=== PATIENT | female | born 1965 | race Caucasian/White ===

== ENCOUNTER 2016-09-08 18:57 | Emergency (ER) | payer MEDICAID ==
[~2016-09-08] VITALS: Ht 162.6 cm; Wt 81.8 kg
[~2016-09-08 18:57] MED LIST: CLON.2 PO; CLON1 PO; LAMO100 PO; LEVO100T4 PO; ONDA1TAB16 PO; TYLE3 PO
[2016-09-08 19:19] VITALS: BP 164/77; PULSE 85; RESP 18; TEMP 98.6; O2SAT 99
[2016-09-08] MEDS ORDERED: SODIUM CHLOR 0.9% 1000 ML INJ 1,000 ML IV SCH (19:37)
--- NOTE | 2016-09-08 19:42 | PD ---
HPI Chief Complaint: Flank/Kidney Pain Time Seen by Provider: 19:39 Travel History International Travel<30 days: No Contact w/Intl Traveler<30days: No Traveled to known affect area: No History of Present Illness HPI 51-year-old female presents to the emergency department for evaluation of right flank pain that radiates to the right abdomen that started last night, but has worsened throughout the day. Patient states she initially thought it was a muscle strain, but the pain has been worsening. She denies any injury. No fevers or chills. She states the pain is worse when she takes a deep breath. Patient states that she had pain like this before when she had her gallbladder removed. She denies any history of nephrolithiasis. She denies any urinary symptoms. She states she is nauseated, but has not vomited. No diarrhea or constipation. No pelvic pain. She reports history of tubal ligation. PFSH Past Medical History Cancer: No Cardiovascular Problems: Yes ( ) Diabetes: No Diminished Hearing: No Endocrine: No Fibromyalgia: Yes Genitourinary: No Hepatitis: No Hiatal Hernia: No Hypertension: Yes Immune Disorder: Yes (fibromyalgia) Musculoskeletal: Yes (l hip pain lower back back pain) Neurologic: Yes (fibromyalgia) Psychiatric: No Reproductive: No Respiratory: No Thyroid Disease: Yes ?: Not Ovarian Cysts: Yes Tubal Ligation: Yes Past Surgical History Abdominal Surgery: Yes (laparoscopy) AICD: No Cardiac Surgery: No Cholecystectomy: Yes Ear Surgery: No Endocrine Surgery: No Eye Surgery: No Gynecologic Surgery: Yes ( ) Joint Replacement: Yes (hip right side) Oral Surgery: No Pacemaker: No Thoracic Surgery: No Other Surgery: Yes Social History Alcohol Use: No Tobacco Use: No 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) Allergies-Medications (Allergen,Severity, Reaction): Coded Allergies: Bactrim (Verified Allergy, Severe, SWELLING, 10/31/15) Doxycycline (Verified Allergy, Severe, SWELLING, 10/31/15) Erythromycin (Verified Allergy, Severe, SWELLING, 10/31/15) Toradol (Verified Allergy, Severe, SWELLING, 10/31/15) Trilafon (Verified Allergy, Severe, SWELLING, 10/31/15) Reported Meds & Prescriptions Reported Meds & Active Scripts Active Lortab (Hydrocodone-Acetaminophen) 5-325 Mg Tab 1 Tab PO Q6H PRN Reported Omeprazole 40 Mg Cap 40 Mg PO DAILY Klonopin (Clonazepam) 2 Mg Tab 2 Mg PO HS Ibuprofen 800 Mg Tab 800 Mg PO TID Zanaflex (Tizanidine HCl) 4 Mg Cap 4 Mg PO TID Hydroxyzine HCl 25 Mg Tab 25 Mg PO TID Remeron (Mirtazapine) 15 Mg Tab 15 Mg PO HS Catapres (Clonidine) 0.2 Mg Tab 0.2 Mg PO BID Ondansetron (Ondansetron HCl) 8 Mg Tab 6 Mg PO Q6HR Lamotrigine 100 Mg Tab 100 Mg PO HS Levothyroxine (Levothyroxine Sodium) 100 Mcg Tab 100 Mcg PO DAILY Review of Systems Except as stated in HPI: all other systems reviewed are Neg Physical Exam Narrative GENERAL: Well-nourished, well-developed female patient, afebrile. SKIN: Focused skin assessment warm/dry. HEAD: Normocephalic. Atraumatic. EYES: No scleral icterus. No injection or drainage. NECK: Supple, trachea midline. No JVD or lymphadenopathy. CARDIOVASCULAR: Regular rate and rhythm without murmurs, gallops, or rubs. RESPIRATORY: Breath sounds equal bilaterally. No accessory muscle use. Lungs sounds are clear to auscultation. GASTROINTESTINAL: Abdomen soft and nondistended. Patient has tenderness over right upper quadrant. MUSCULOSKELETAL: No cyanosis, or edema. BACK: Nontender without obvious deformity. Right CVA tenderness. Data Data Last Documented VS Vital Signs Date Time Temp Pulse Resp B/P Pulse Ox O2 Delivery O2 Flow Rate FiO2 09/08/16 19:19 98.6 85 18 164/77 99 Orders Morphine Inj (Morphine Inj) (09/08/16 19:45) Complete Blood Count With Diff (09/08/16 19:37) Comprehensive Metabolic Panel (09/08/16 19:37) Lipase (09/08/16 19:37) Urinalysis - C+S If Indicated (09/08/16 19:37) Ct Abd/Pel W/O Iv Contrast (09/08/16 19:37) Iv Access Insert/Monitor (09/08/16 19:37) Ecg Monitoring (09/08/16 19:37) Oximetry (09/08/16 19:37) Ondansetron Inj (Zofran Inj) (09/08/16 19:45) Sodium Chlor 0.9% 1000 Ml Inj (Ns 1000 M (09/08/16 19:37) Sodium Chloride 0.9% Flush (Ns Flush) (09/08/16 19:45) Electrocardiogram (09/08/16 19:37) Morphine Inj (Morphine Inj) (09/08/16 22:00) Labs Laboratory Tests Test 09/08/16 09/08/16 20:05 21:25 Urine Color LIGHT-YELLOW Urine Turbidity CLEAR Urine pH 6.5 Urine Specific [place] 1.004 Urine Protein NEG mg/dL Urine Glucose (UA) NEG mg/dL Urine Ketones NEG mg/dL Urine Occult Blood NEG Urine Nitrite NEG Urine Bilirubin NEG Urine Urobilinogen LESS THAN 2.0 MG/DL Urine Leukocyte Esterase NEG Urine RBC LESS THAN 1 /hpf Urine WBC LESS THAN 1 /hpf Urine Bacteria RARE /hpf Microscopic Urinalysis Comment CULT NOT INDICATED Sodium Level 143 MEQ/L Potassium Level 4.6 MEQ/L Chloride Level 111 MEQ/L Carbon Dioxide Level 22.0 MEQ/L Anion Gap 10 MEQ/L Blood Urea Nitrogen 9 MG/DL Creatinine 0.86 MG/DL Estimat Glomerular Filtration 70 ML/MIN Rate Random Glucose 124 MG/DL Calcium Level 9.0 MG/DL Total Bilirubin 0.3 MG/DL Aspartate Amino Transf 109 U/L (AST/SGOT) Alanine Aminotransferase 163 U/L (ALT/SGPT) Alkaline Phosphatase 123 U/L Total Protein 7.8 GM/DL Albumin 3.7 GM/DL Lipase 262 U/L White Blood Count 7.3 TH/MM3 Red Blood Count 4.42 MIL/MM3 Hemoglobin 13.0 GM/DL Hematocrit 38.2 % Mean Corpuscular Volume 86.5 FL Mean Corpuscular Hemoglobin 29.5 PG Mean Corpuscular Hemoglobin 34.1 % Concent Red Cell Distribution Width 14.5 % Platelet Count 158 TH/MM3 Mean Platelet Volume 9.7 FL Neutrophils (%) (Auto) 60.7 % Lymphocytes (%) (Auto) 32.5 % Monocytes (%) (Auto) 5.1 % Eosinophils (%) (Auto) 0.9 % Basophils (%) (Auto) 0.8 % Neutrophils # (Auto) 4.5 TH/MM3 Lymphocytes # (Auto) 2.4 TH/MM3 Monocytes # (Auto) 0.4 TH/MM3 Eosinophils # (Auto) 0.1 TH/MM3 Basophils # (Auto) 0.1 TH/MM3 CBC Comment DIFF FINAL Differential Comment MDM Medical Decision Making Medical Screen Exam Complete: Yes Emergency Medical Condition: Yes Medical Record Reviewed: Yes Interpretation(s) Last Impressions Abdomen/Pelvis CT 09/08/161936 Signed Impressions: Service Date/Time: Thursday, September 08, 2016 20:08 - CONCLUSION: Negative renal colic CT. No evidence of renal/ureteral stones or hydronephrosis. Martin Jimenez MD Differential Diagnosis Nephrolithiasis versus pyelonephritis versus pancreatitis Narrative Course 51-year-old female presents to the emergency department for evaluation of right flank pain and right abdomen pain that started last night. EKG, CBC, CMP, lipase, UA are ordered and pending. CT abdomen/pelvis is ordered and pending. Patient is given normal saline 1 L IV bolus, Zofran 4 mg IV, morphine 4 mg IV. EKG shows SR, HR 75, no acute ST changes. CBC is unremarkable. CMP shows elevated AST of 109, ALT 163, alkaline phosphatase of 123. Lipase is 262. UA is negative. CT abdomen/pelvis is negative. Patient is given second dose morphine 4 mg IV for pain. She is instructed to follow with her primary care physician for further evaluation. She is return for any acute worsening of symptoms. Patient verbalizes agreement and understanding. My attending physician, Dr. Nixon, is aware of all results and agrees with plan and disposition. The patient was discharged in stable condition with instructions, including return instructions and follow up instructions. Diagnosis Primary Impression: Abdominal pain Qualified Code: R10.11 - Right upper quadrant abdominal pain Referrals: Primary Care Physician call for appointment Patient Instructions: Abdominal Pain (ED), General Instructions Additional Instructions: Take Lortab as directed as needed with food for pain. Follow-up with your primary care physician. Return to the emergency department for any acute worsening of symptoms. Med/Other Pt SpecificInfo: Prescription(s) given Scripts Hydrocodone-Acetaminophen (Lortab)5-325 Mg Tab1 Tab PO Q6H PRN (PAIN) #12 TAB Ref 0 Prov:Hernandez Nixon MD 09/08/16 Disposition: 01 DISCHARGE HOME Condition: Stable DouglasNatalia Sep 08, 2016 19:41
[2016-09-08] MEDS ORDERED: ONDANSETRON HCL 4 MG/2 ML VIAL IVP ONE (19:45)
[2016-09-08] MEDS ORDERED: MORPHINE SULFATE 4 MG/ML INJ IV PUSH ONE ×2 (19:45→22:00)
[2016-09-08] MEDS: SODIUM CHLORIDE 0.9% FLUSH 10 ML FLUSH IV FLUSH PRN ×2 (19:56→21:56)
[2016-09-08] MEDS ORDERED: LEVO100T5 PO (20:01)
[2016-09-08] MEDS ORDERED: REME15TA PO (20:01)
[2016-09-08] MEDS ORDERED: LAMO100T PO (20:01)
[2016-09-08] MEDS ORDERED: KLON2TAB PO (20:01)
[2016-09-08] MEDS ORDERED: ZANA4CAP PO (20:01)
[2016-09-08] MEDS ORDERED: IBUP800T23 PO (20:01)
[2016-09-08] MEDS ORDERED: HYDR-3133 PO (20:01)
[2016-09-08] MEDS ORDERED: CLON.2 PO (20:01)
[2016-09-08] MEDS ORDERED: ONDA1TAB17 PO (20:01)
[2016-09-08] MEDS ORDERED: OMEP40CA2 PO (20:01)
[2016-09-08 20:35] LABS: BACTERIA, URINE RARE /hpf; BLOOD, URINE NEG (NEG); COMMENT (UR) CULT NOT INDICATED; CULTURE IF INDICATED CULT NOT INDICATED; GLUCOSE,URINE NEG (NEG); KETONE, URINE NEG (NEG); NITRITE,URINE NEG (NEG); PH, URINE 6.5 (5.0-8.5); URINE COLOR LIGHT-YELLOW (YELLW/STRAW)
[2016-09-08 20:38] LABS: ANION GAP 10 MEQ/L (5-15); AST (GOT) 109 U/L (15-37); BLOOD UREA NITROGEN 9 MG/DL (7-18); CHLORIDE 111 MEQ/L (98-107); GLOMERULAR FILTRATION RATE 70 ML/MIN (>89); SODIUM (NA) 143 MEQ/L (136-145)
[2016-09-08 20:41] LABS: ALKALINE PHOSPHATASE 123 U/L (45-117); ALT (GPT) 163 U/L (10-53); TOTAL BILIRUBIN ADULT 0.3 MG/DL (0.2-1.0)
[2016-09-08 20:45] LABS: POTASSIUM 4.6 MEQ/L (3.5-5.1)
--- NOTE | 2016-09-08 20:45 | RADRPT ---
EXAM DATE/TIME: 09/08/2016 20:08 [facility] COMPARISON: CT ABDOMEN & PELVIS W/O CONTRAST, October 31, 2015, 7:26. INDICATIONS : Right flank pain today. ORAL CONTRAST: No oral contrast ingested. RADIATION DOSE: 14.94 CTDIvol (mGy) MEDICAL HISTORY : Hypertension. fibromyalgia SURGICAL HISTORY : Cholecystectomy. Tubal ligation. ENCOUNTER: Initial ACUITY: 1 day PAIN SCALE: 7/10 LOCATION: Right flank TECHNIQUE: Volumetric scanning of the abdomen and pelvis was performed. Using automated exposure control and ad justment of the mA and/or kV according to patient size, radiation dose was kept as low as reasonably achievable to obtain optimal diagnostic quality images. DICOM format image data is available electro nically for review and comparison. FINDINGS: LOWER LUNGS: The visualized lower lungs are clear. LIVER: Homogeneous density without lesion for noncontrast technique. There is no dilation of the biliary tr ee. Cholecystectomy. SPLEEN: Normal size without lesion. PANCREAS: Within normal limits. KIDNEYS: No evidence of hydronephrosis or hydroureter. No calcified stones in the collecting system of either kidney. No calcified stones along the course of the ureter. There is a focal calcification measuri ng 2 mm seen on image #146 which was present on prior examination in 2016, it is unrelated to the ure ter, and probably represents a phlebolith. ADRENAL GLANDS: Within normal limits. VASCULAR: There is no aortic aneurysm. BOWEL/MESENTERY: The stomach, small bowel, and colon demonstrate no acute abnormality. There is no free intraperitone al air or fluid. ABDOMINAL WALL: Within normal limits. RETROPERITONEUM: There is no lymphadenopathy. BLADDER: Uterus is anteverted. No evidence of free fluid. REPRODUCTIVE: Within normal limits. INGUINAL: There is no lymphadenopathy or hernia. MUSCULOSKELETAL: Stable bone island right L3 vertebral body and mild hypertrophic degenerative changes and posterior e lements lower lumbar spine. Stable bone plug left sacral ala. CONCLUSION: Negative renal colic CT. No evidence of renal/ureteral stones or hydronephrosis. Martin Jimenez MD on September 08, 2016 at 20:36 Board Certified Radiologist. This report was verified electronically.
[2016-09-08 21:39] LABS: AUTOMATED NEUTROPHIL # 4.5 TH/MM3 (1.8-7.7); BASOPHIL # 0.1 TH/MM3 (0-0.2); BASOPHIL % 0.8 % (0.0-2.0); EOSINOPHIL # 0.1 TH/MM3 (0-0.4); EOSINOPHIL % 0.9 % (0.0-4.0); HEMATOCRIT 38.2 % (35.0-46.0); HEMO FLAGS DIFF FINAL; LYMPH % 32.5 % (9.0-44.0); LYMPHOCYTE # 2.4 TH/MM3 (1.0-4.8); MEAN CELL VOLUME 86.5 FL (80.0-100.0); MEAN CORPUSCULAR HEMOGLOBIN 29.5 PG (27.0-34.0); MEAN CORPUSCULAR HGB CONC 34.1 % (32.0-36.0); MONO % 5.1 % (0.0-8.0); NEUT % 60.7 % (16.0-70.0); PLATELET COUNT 158 TH/MM3 (150-450); RED BLOOD COUNT 4.42 MIL/MM3 (4.00-5.30); RED CELL DISTRIBUTION WIDTH 14.5 % (11.6-17.2); WHITE BLOOD COUNT 7.3 TH/MM3 (4.0-11.0)
[2016-09-08] MEDS ORDERED: HYDR-3533 PO (21:47)
--- NOTE | 2016-09-09 13:18 | EKG ---
Date Performed: 09/08/2016 Time Performed: 19:54:36 PTAGE: 51 years EKG: Sinus rhythm NORMAL ECG PREVIOUS TRACING : 06/16/2015 12.28 Compared to prior tracing no significant change DOCTOR: Samy Evans Interpretating Date/Time 09/09/2016 13:14:38
== END 2016-09-08 22:16 | disposition home or self-care (01) ==
LOC: NEPE 18:57
DX: R10.11 Right upper quadrant pain (principal); I10 Essential (primary) hypertension; F19.21 Other psychoactive substance dependence, in remission
CPT/HCPCS: 74176; 80053; 81001; 83690; 85025; 93005; 96361; 96374; 96375; 96376; 99285; J2270; J2405; J7030

== ENCOUNTER 2016-09-11 10:14 | Emergency (ER) | payer MEDICAID ==
[~2016-09-11] VITALS: Ht 162.6 cm; Wt 180.0 kg
[~2016-09-11 10:14] MED LIST changes: -CLON1 PO; +HYDR-3133 PO; +HYDR-3533 PO; +IBUP800T23 PO; +KLON2TAB PO; -LAMO100 PO; +LAMO100T PO; -LEVO100T4 PO; +LEVO100T5 PO; +OMEP40CA2 PO; -ONDA1TAB16 PO; +ONDA1TAB17 PO; +REME15TA PO; -TYLE3 PO; +ZANA4CAP PO
[2016-09-11 10:39] VITALS: BP 160/71; PULSE 62; RESP 16; TEMP 98.3; O2SAT 96
[2016-09-11 10:46] VITALS: BP 162/98; PULSE 84; RESP 18; O2SAT 98
[2016-09-11] MEDS ORDERED: MORPHINE SULFATE 4 MG/ML INJ IV PUSH ONE ×2 (11:00→13:30)
[2016-09-11] MEDS ORDERED: SODIUM CHLORIDE 0.9% FLUSH 10 ML FLUSH IV FLUSH PRN (11:00)
[2016-09-11] MEDS ORDERED: ONDANSETRON HCL 4 MG/2 ML VIAL IVP ONE (11:00)
--- NOTE | 2016-09-11 11:04 | PD ---
HPI Chief Complaint: Abdominal Pain Time Seen by Provider: 10:43 Travel History International Travel<30 days: No Contact w/Intl Traveler<30days: No Traveled to known affect area: No History of Present Illness HPI 51yo F with PMH of fibromyalgia presents to the ED with c/o abdominal pain today. Pt was just seen at [facility] on 09/08/16 with similar abdominal pain and had negative CT a/p. Pt also with nausea. Pain is right sided, constant and feels like cramping. Pt is crying, laying on right side which makes it better. No urinary complaints. PFSH Past Medical History Cancer: No Cardiovascular Problems: Yes ( ) Diabetes: No Diminished Hearing: No Endocrine: No Fibromyalgia: Yes Gastrointestinal Disorders: No Genitourinary: No Hepatitis: No Hiatal Hernia: No Hypertension: Yes Immune Disorder: Yes (fibromyalgia) Musculoskeletal: Yes (l hip pain lower back back pain) Neurologic: Yes (fibromyalgia) Psychiatric: No Reproductive: No Respiratory: No Thyroid Disease: Yes Influenza Vaccination: No ?: Not LMP: 08/2016 : 4 Para: 4 Ovarian Cysts: Yes Tubal Ligation: Yes Past Surgical History Abdominal Surgery: Yes (laparoscopy) AICD: No Cardiac Surgery: No Cholecystectomy: Yes Ear Surgery: No Endocrine Surgery: No Eye Surgery: No Gynecologic Surgery: Yes ( ) Joint Replacement: Yes (hip right side) Oral Surgery: No Pacemaker: No Thoracic Surgery: No Other Surgery: Yes Social History Alcohol Use: No Tobacco Use: No 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) Allergies-Medications (Allergen,Severity, Reaction): Coded Allergies: Bactrim (Verified Allergy, Severe, SWELLING, 10/31/15) Doxycycline (Verified Allergy, Severe, SWELLING, 10/31/15) Erythromycin (Verified Allergy, Severe, SWELLING, 10/31/15) Toradol (Verified Allergy, Severe, SWELLING, 10/31/15) Trilafon (Verified Allergy, Severe, SWELLING, 10/31/15) Reported Meds & Prescriptions Reported Meds & Active Scripts Active Lortab (Hydrocodone-Acetaminophen) 5-325 Mg Tab 1 Tab PO Q6H PRN Reported Omeprazole 40 Mg Cap 40 Mg PO DAILY Klonopin (Clonazepam) 2 Mg Tab 2 Mg PO HS Ibuprofen 800 Mg Tab 800 Mg PO TID Zanaflex (Tizanidine HCl) 4 Mg Cap 4 Mg PO TID Hydroxyzine HCl 25 Mg Tab 25 Mg PO TID Remeron (Mirtazapine) 15 Mg Tab 15 Mg PO HS Catapres (Clonidine) 0.2 Mg Tab 0.2 Mg PO BID Ondansetron (Ondansetron HCl) 8 Mg Tab 6 Mg PO Q6HR Lamotrigine 100 Mg Tab 100 Mg PO HS Levothyroxine (Levothyroxine Sodium) 100 Mcg Tab 100 Mcg PO DAILY Review of Systems Except as stated in HPI: all other systems reviewed are Neg Physical Exam Narrative GENERAL: 51yo F in moderate distress. SKIN: Focused skin assessment warm/dry. HEAD: Atraumatic. Normocephalic. EYES: Pupils equal and round. No scleral icterus. No injection or drainage. ENT: No nasal bleeding or discharge. Mucous membranes pink and moist. NECK: Trachea midline. No JVD. CARDIOVASCULAR: Regular rate and rhythm. No murmur appreciated. RESPIRATORY: No accessory muscle use. Clear to auscultation. Breath sounds equal bilaterally. GASTROINTESTINAL: Abdomen soft, +TTP RUQ. No rebound tenderness or guarding. MUSCULOSKELETAL: No obvious deformities. No clubbing. No cyanosis. No edema. NEUROLOGICAL: Awake and alert. No obvious cranial nerve deficits. Motor grossly within normal limits. Normal speech. PSYCHIATRIC: Appropriate mood and affect; insight and judgment normal. Data Data Last Documented VS Vital Signs Date Time Temp Pulse Resp B/P Pulse Ox O2 Delivery O2 Flow Rate FiO2 09/11/16 10:46 84 18 162/98 98 09/11/16 10:39 98.3 Room Air Orders Complete Blood Count With Diff (09/11/16 10:55) Comprehensive Metabolic Panel (09/11/16 10:55) Lipase (09/11/16 10:55) Urinalysis - C+S If Indicated (09/11/16 10:55) Iv Access Insert/Monitor (09/11/16 10:55) Ecg Monitoring (09/11/16 10:55) Oximetry (09/11/16 10:55) Morphine Inj (Morphine Inj) (09/11/16 11:00) Ondansetron Inj (Zofran Inj) (09/11/16 11:00) Sodium Chloride 0.9% Flush (Ns Flush) (09/11/16 11:00) Ed Urine Pregnancytest Poc (09/11/16 10:55) Morphine Inj (Morphine Inj) (09/11/16 13:30) Labs Laboratory Tests Test 09/11/16 09/11/16 11:19 11:51 White Blood Count 6.2 TH/MM3 Red Blood Count 4.37 MIL/MM3 Hemoglobin 12.8 GM/DL Hematocrit 37.9 % Mean Corpuscular Volume 86.7 FL Mean Corpuscular Hemoglobin 29.2 PG Mean Corpuscular Hemoglobin 33.7 % Concent Red Cell Distribution Width 14.1 % Platelet Count 155 TH/MM3 Mean Platelet Volume 9.6 FL Neutrophils (%) (Auto) 52.4 % Lymphocytes (%) (Auto) 35.0 % Monocytes (%) (Auto) 8.4 % Eosinophils (%) (Auto) 3.3 % Basophils (%) (Auto) 0.9 % Neutrophils # (Auto) 3.3 TH/MM3 Lymphocytes # (Auto) 2.2 TH/MM3 Monocytes # (Auto) 0.5 TH/MM3 Eosinophils # (Auto) 0.2 TH/MM3 Basophils # (Auto) 0.1 TH/MM3 CBC Comment DIFF FINAL Differential Comment Sodium Level 144 MEQ/L Potassium Level 4.0 MEQ/L Chloride Level 109 MEQ/L Carbon Dioxide Level 29.6 MEQ/L Anion Gap 5 MEQ/L Blood Urea Nitrogen 8 MG/DL Creatinine 0.88 MG/DL Estimat Glomerular Filtration 68 ML/MIN Rate Random Glucose 114 MG/DL Calcium Level 8.3 MG/DL Total Bilirubin 0.2 MG/DL Aspartate Amino Transf 81 U/L (AST/SGOT) Alanine Aminotransferase 130 U/L (ALT/SGPT) Alkaline Phosphatase 117 U/L Total Protein 6.8 GM/DL Albumin 3.3 GM/DL Lipase 244 U/L Urine Color LIGHT-YELLOW Urine Turbidity CLEAR Urine pH 6.0 Urine Specific [place] 1.008 Urine Protein NEG mg/dL Urine Glucose (UA) NEG mg/dL Urine Ketones NEG mg/dL Urine Occult Blood NEG Urine Nitrite NEG Urine Bilirubin NEG Urine Urobilinogen LESS THAN 2.0 MG/DL Urine Leukocyte Esterase SMALL Urine RBC LESS THAN 1 /hpf Urine WBC 1 /hpf Urine Squamous Epithelial 1 /hpf Cells Urine Bacteria OCC /hpf Urine Mucus FEW /lpf Microscopic Urinalysis Comment CULT NOT INDICATED MDM Medical Decision Making Medical Screen Exam Complete: Yes Emergency Medical Condition: Yes Differential Diagnosis Chronic abdominal pain vs. IBS vs. gastroparesis vs. hepatitis vs. pancreatitis Narrative Course 51yo F with abdominal pain feels like contractions. Pt given morphine IV which helped with pain. Labs reviewed, no leukocytosis. AST and ALT elevated but is improved from 3 days ago. Lipase normal. UA negative with WBC 1. Culture not indicated. Pt just had a negative CTa/p 3 days ago. Instructed pt to follow up gastroenterology as outpatient. Pt has been here for abdominal pain multiple times before. Return precautions given. Diagnosis Primary Impression: Abdominal pain Qualified Code: R10.84 - Generalized abdominal pain Referrals: Tennille Tan MD as needed Patient Instructions: General Instructions Departure Forms: Tests/Procedures Additional Instructions: Please follow up with your PMD or GI. Med/Other Pt SpecificInfo: No Change to Meds Disposition: 01 DISCHARGE HOME Condition: Stable Kathleen Flaherty Sep 11, 2016 11:04
[2016-09-11 11:31] LABS: AUTOMATED NEUTROPHIL # 3.3 TH/MM3 (1.8-7.7); BASOPHIL # 0.1 TH/MM3 (0-0.2); BASOPHIL % 0.9 % (0.0-2.0); EOSINOPHIL # 0.2 TH/MM3 (0-0.4); EOSINOPHIL % 3.3 % (0.0-4.0); HEMATOCRIT 37.9 % (35.0-46.0); HEMO FLAGS DIFF FINAL; LYMPHOCYTE # 2.2 TH/MM3 (1.0-4.8); MEAN CELL VOLUME 86.7 FL (80.0-100.0); MEAN CORPUSCULAR HEMOGLOBIN 29.2 PG (27.0-34.0); MEAN CORPUSCULAR HGB CONC 33.7 % (32.0-36.0); MONO % 8.4 % (0.0-8.0); NEUT % 52.4 % (16.0-70.0); PLATELET COUNT 155 TH/MM3 (150-450); RED BLOOD COUNT 4.37 MIL/MM3 (4.00-5.30); RED CELL DISTRIBUTION WIDTH 14.1 % (11.6-17.2); WHITE BLOOD COUNT 6.2 TH/MM3 (4.0-11.0)
[2016-09-11 11:47] LABS: ALT (GPT) 130 U/L (10-53); ANION GAP 5 MEQ/L (5-15); AST (GOT) 81 U/L (15-37); BICARBONATE 29.6 MEQ/L (21.0-32.0); BLOOD UREA NITROGEN 8 MG/DL (7-18); CHLORIDE 109 MEQ/L (98-107); GLOMERULAR FILTRATION RATE 68 ML/MIN (>89); SODIUM (NA) 144 MEQ/L (136-145)
[2016-09-11 11:49] LABS: ALKALINE PHOSPHATASE 117 U/L (45-117); TOTAL BILIRUBIN ADULT 0.2 MG/DL (0.2-1.0)
[2016-09-11 12:24] LABS: BACTERIA, URINE OCC /hpf; BLOOD, URINE NEG (NEG); COMMENT (UR) CULT NOT INDICATED; CULTURE IF INDICATED CULT NOT INDICATED; GLUCOSE,URINE NEG (NEG); KETONE, URINE NEG (NEG); MUCUS URINE FEW /lpf (OCC); NITRITE,URINE NEG (NEG); SQUAMOUS EPITHELIAL CELL URINE 1 /hpf (0-5); URINE COLOR LIGHT-YELLOW (YELLW/STRAW)
[2016-09-11 13:40] VITALS: BP 115/63; PULSE 76; RESP 19; O2SAT 98
== END 2016-09-11 14:54 | disposition home or self-care (01) ==
LOC: NEPC 10:14
DX: R10.84 Generalized abdominal pain (principal); I10 Essential (primary) hypertension; M79.7 Fibromyalgia; Z96.641 Presence of right artificial hip joint
CPT/HCPCS: 80053; 81001; 83690; 84703; 85025; 96374; 96375; 96376; 99284; J2270; J2405

== ENCOUNTER 2017-06-30 13:39 | Emergency (ER) | payer MEDICAID ==
[~2017-06-30 13:39] MED LIST changes: +IBUP1TAB7 PO; -IBUP800T23 PO; -ONDA1TAB17 PO; +ONDA8TAB7 PO
[2017-06-30 14:18] VITALS: BP 153/92; PULSE 100; RESP 18; TEMP 98.6; O2SAT 99
[2017-06-30] MEDS ORDERED: ORPHENADRINE INJ 60 MG/2 ML AMP IM ONE (15:15)
--- NOTE | 2017-06-30 15:55 | RADRPT ---
EXAM DATE/TIME: 06/30/2017 15:16 [facility] COMPARISON: No previous studies available for comparison. INDICATIONS : Trauma, patient fell out of bed. Complains of head,neck and back pain. RADIATION DOSE: 72.64 CTDIvol (mGy) ; Patient positioning; Tabletop CT Head MEDICAL HISTORY : Hypertension. Facet arthritis. SURGICAL HISTORY : Tubal ligation. ENCOUNTER: Initial ACUITY: 1 day PAIN SCALE: 9/10 LOCATION: cranial TECHNIQUE: Multiple contiguous axial images were obtained of the head. Using automated exposure control and adj ustment of the mA and/or kV according to patient size, radiation dose was kept as low as reasonably a chievable to obtain optimal diagnostic quality images. DICOM format image data is available electro nically for review and comparison. FINDINGS: CEREBRUM: The ventricles are normal for age. No evidence of midline shift, mass lesion, hemorrhage or acute in farction. No extra-axial fluid collections are seen. POSTERIOR FOSSA: The cerebellum and brainstem are intact. The 4th ventricle is midline. The cerebellopontine angle i s unremarkable. EXTRACRANIAL: The visualized portion of the orbits is intact. SKULL: The calvaria is intact. No evidence of skull fracture. CONCLUSION: No acute intracranial findings. Tio Gonzales MD on June 30, 2017 at 15:51 Board Certified Radiologist. This report was verified electronically.
--- NOTE | 2017-06-30 16:10 | RADRPT ---
EXAM DATE/TIME: 06/30/2017 15:16 [facility] COMPARISON: No previous studies available for comparison. INDICATIONS : TRauma, patient fell out of bed. Complains of head, neck and back pain. RADIATION DOSE: 42.99 CTDIvol (mGy) MEDICAL HISTORY : Hypertension. SURGICAL HISTORY : Tubal ligation. ENCOUNTER: Initial ACUITY: 1 day PAIN SCALE: 9/10 LOCATION: neck TECHNIQUE: Volumetric scanning of the cervical spine was performed. Multiplanar reconstructions in the sagittal, coronal and oblique axial planes were performed. Using automated exposure control and adjustment o f the mA and/or kV according to patient size, radiation dose was kept as low as reasonably achievable to obtain optimal diagnostic quality images. DICOM format image data is available electronically f or review and comparison. FINDINGS: Sagittal and coronal reconstructions show early degenerative disc disease at C5-6 with some loss of d isc height and marginal spurring. Minimal marginal spur at C6-7 as well. Otherwise, vertebral body de fects are maintained without fracture or listhesis. Spinal canal appears to be widely patent througho ut. C2-C3: The bony spinal canal is normal in size. No evidence of disc bulge or herniation. The neural forami na are bilaterally patent. C3-C4: The bony spinal canal is normal in size. No evidence of disc bulge or herniation. The neural forami na are bilaterally patent. C4-C5: The bony spinal canal is normal in size. No evidence of disc bulge or herniation. The neural forami na are bilaterally patent. C5-C6: Minimal marginal spur directed anteriorly. Spinal canal and neural foramina are patent. C6-C7: Minimal marginal spur directed anteriorly. Spinal canal and no foramina are patent. C7-T1: The bony spinal canal is normal in size. No evidence of disc bulge or herniation. The neural forami na are bilaterally patent. CONCLUSION: 1. Minimal degenerative disc disease with small marginal spurs particularly predominately at C5-6. 2. Otherwise negative. No acute fracture or listhesis. Spinal canal and neural foramina are adequate throughout. Shashi Mccurdy MD on June 30, 2017 at 16:02 Board Certified Radiologist. This report was verified electronically.
--- NOTE | 2017-06-30 16:22 | PD ---
HPI . Fall Chief Complaint: Fall Time Seen by Provider: 14:58 Travel History International Travel<30 days: No Contact w/Intl Traveler<30days: No Traveled to known affect area: No History of Present Illness HPI This patient presents via [facility] stating that she was standing on her bed shaking on her blanket when she inadvertently fell and struck her head on the wall and her left elbow on a bucket. She reports a very brief loss of consciousness. Following the event, she states she got up and went and sat in her chair and waited for rescue. She comes in to us complaining with head pain, neck pain, back pain and left elbow pain. She rates her pain 9/10. Pain is exacerbated by any sort of movement. In fact, she states that she cannot go for a CT scan or x-rays currently because her pain is too severe to get into appropriate position. PFSH Past Medical History Cancer: No Cardiovascular Problems: Yes ( ) Diabetes: No Diminished Hearing: No Endocrine: No Fibromyalgia: Yes Gastrointestinal Disorders: No Genitourinary: No Hepatitis: No Hiatal Hernia: No Hypertension: Yes Immune Disorder: Yes (fibromyalgia) Musculoskeletal: Yes (l hip pain lower back back pain) Neurologic: Yes (fibromyalgia) Psychiatric: No Reproductive: No Respiratory: No Thyroid Disease: Yes ?: Not : 4 Para: 4 Ovarian Cysts: Yes Tubal Ligation: Yes Past Surgical History Abdominal Surgery: Yes (laparoscopy) AICD: No Cardiac Surgery: No Cholecystectomy: Yes Ear Surgery: No Endocrine Surgery: No Eye Surgery: No Gynecologic Surgery: Yes ( ) Joint Replacement: Yes (hip right side) Oral Surgery: No Pacemaker: No Thoracic Surgery: No Other Surgery: Yes Social History Alcohol Use: No Tobacco Use: No 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) Allergies-Medications (Allergen,Severity, Reaction): Coded Allergies: doxycycline (Unverified Allergy, Severe, SWELLING, 10/21/16) erythromycin base (Unverified Allergy, Severe, SWELLING, 10/21/16) ketorolac (Unverified Allergy, Severe, SWELLING, 10/21/16) perphenazine (Unverified Allergy, Severe, SWELLING, 10/21/16) sulfamethoxazole (Unverified Allergy, Severe, SWELLING, 10/21/16) trimethoprim (Unverified Allergy, Severe, SWELLING, 10/21/16) Reported Meds & Prescriptions Reported Meds & Active Scripts Active Lortab (Hydrocodone-Acetaminophen) 5-325 Mg Tab 1 Tab PO Q6H PRN Reported Omeprazole 40 Mg Cap 40 Mg PO DAILY Klonopin (Clonazepam) 2 Mg Tab 2 Mg PO HS Ibuprofen 800 Mg Tab 800 Mg PO TID Zanaflex (Tizanidine HCl) 4 Mg Cap 4 Mg PO TID Hydroxyzine HCl 25 Mg Tab 25 Mg PO TID Remeron (Mirtazapine) 15 Mg Tab 15 Mg PO HS Catapres (Clonidine) 0.2 Mg Tab 0.2 Mg PO BID Ondansetron (Ondansetron HCl) 8 Mg Tab 6 Mg PO Q6HR Lamotrigine 100 Mg Tab 100 Mg PO HS Levothyroxine (Levothyroxine Sodium) 100 Mcg Tab 100 Mcg PO DAILY Review of Systems Except as stated in HPI: all other systems reviewed are Neg Physical Exam Narrative GENERAL: Awake and alert and in no acute distress. SKIN: Warm and dry. I do not find any contusions bruising, redness, abrasions in her scalp, neck, back or left elbow. That is, there are no external signs of injury. HEAD: Normocephalic/atraumatic. EYES: Pupils are equal. Extraocular movements are intact. NECK: Normal range of motion. RESPIRATORY: Nonlabored respirations. MUSCULOSKELETAL: As stated above, the left elbow has no bruising, swelling, abrasions, deformity. Distally neurovascularly intact. NEUROLOGICAL: Nonfocal. PSYCHIATRIC: Appropriate mood and affect. Data Data Last Documented VS Vital Signs Date Time Temp Pulse Resp B/P (MAP) Pulse Ox O2 Delivery O2 Flow Rate FiO2 06/30/17 14:18 98.6 100 18 153/92 (112) [address] Cerv Spine W/O Contrast (06/30/17 ) Ct Lumb Spine W/O Contrast (06/30/17 ) Chest, Pa & Lat (06/30/17 ) Ct Brain W/O Iv Contrast(Rout) (06/30/17 ) Elbow, Complete (4 Vws) (06/30/17 ) Orphenadrine Inj (Norflex Inj) (06/30/17 15:15) MDM Medical Decision Making Medical Screen Exam Complete: Yes Emergency Medical Condition: Yes Differential Diagnosis My differential diagnosis of head trauma includes but is not limited to scalp contusion, concussion, intracerebral hemorrhage. Differential diagnosis of neck injury includes but is not limited to contusion, muscle strain, ligamentous strain, fracture, spinal cord injury Differential diagnosis of back injury includes but is not limited to contusion, muscle strain, ligamentous strain, compression fracture, spinous process fracture Differential diagnosis of extremity trauma includes but is not limited to fracture, sprain or strain, dislocation, contusion Narrative Course This patient presents to us by [facility] complaining of injuries to her head, neck, back and left elbow from a fall. She was standing on her bed when she fell and struck her head on the wall and her left elbow on a bucket. She has no physical exam findings compatible with injury. Last Impressions Lumbar Spine CT 06/30/17 0000 Signed Impressions: Service Date/Time: Friday, June 30, 2017 15:22 - CONCLUSION: 1. Multiple benign findings including some mild marginal spurring from T11-12 through L3-4 and scattered bone islands as detailed above. Some calcification of the ligamentum flavum at L2-3. 2. No acute fracture or listhesis. Spinal canal and neural foramina appear to be adequate throughout Shashi Mccurdy MD Head CT 06/30/17 0000 Signed Impressions: Service Date/Time: Friday, June 30, 2017 15:16 - CONCLUSION: No acute intracranial findings. Tio Gonzales MD Cervical Spine CT 06/30/17 0000 Signed Impressions: Service Date/Time: Friday, June 30, 2017 15:16 - CONCLUSION: 1. Minimal degenerative disc disease with small marginal spurs particularly predominately at C5-6. 2. Otherwise negative. No acute fracture or listhesis. Spinal canal and neural foramina are adequate throughout. Shashi Mccurdy MD It does not appear that she has had her left elbow x-rayed yet. Diagnosis Primary Impression: Fall Qualified Codes: W19.XXXA - Unspecified fall, initial encounter Patient Instructions: Fall Prevention (DC), General Instructions Disposition: 01 DISCHARGE HOME Condition: Stable Karol Trejo MD Jun 30, 2017 16:22
--- NOTE | 2017-06-30 16:25 | RADRPT ---
EXAM DATE/TIME: 06/30/2017 15:22 [facility] COMPARISON: No previous studies available for comparison. INDICATIONS : TRauma, patient fell off bed. Complains of head, neck and back pain. RADIATION DOSE: 46.39 CTDIvol (mGy) MEDICAL HISTORY : Hypertension. SURGICAL HISTORY : Tubal ligation. ENCOUNTER: Initial ACUITY: 1 day PAIN SCALE: 9/10 LOCATION: low back TECHNIQUE: Volumetric scanning of the lumbar spine was performed. Multiplanar reconstructions in the sagittal, coronal and oblique axial planes were performed. Using automated exposure control and adjustment of the mA and/or kV according to patient size, radiation dose was kept as low as reasonably achievable t o obtain optimal diagnostic quality images. DICOM format image data is available electronically for review and comparison. FINDINGS: Sagittal and coronal reconstructions show mild, multilevel degenerative disc disease and marginal spu rring from T11-12 through L3-4. Vertebral body heights are maintained without fracture or listhesis. Spinal canal appears to be widely patent throughout. A benign-appearing calcification in the ligament um flavum at L2-3. Benign-appearing bone island in the right side of the L3 vertebral body inferiorly . Additional air sclerosis/tubular bone island in the left sacral ala with punctate bone islands in b oth ilii. There is some calcification juxtaposed between the sacral ala and ilium on the left posteri or to the SI joint which is overtly benign. Patient is status post cholecystectomy. T12-L1: The thecal sac has a normal diameter. No evidence of disc bulge or protrusion. The neural foramina are patent bilaterally. L1-L2: The thecal sac has a normal diameter. No evidence of disc bulge or protrusion. The neural foramina are patent bilaterally. L2-L3: The thecal sac has a normal diameter. No evidence of disc bulge or protrusion. The neural foramina are patent bilaterally. L3-L4: The thecal sac has a normal diameter. No evidence of disc bulge or protrusion. The neural foramina are patent bilaterally. L4-L5: The thecal sac has a normal diameter. No evidence of disc bulge or protrusion. The neural foramina are patent bilaterally. L5-S1: The thecal sac has a normal diameter. No evidence of disc bulge or protrusion. The neural foramina are patent bilaterally. CONCLUSION: 1. Multiple benign findings including some mild marginal spurring from T11-12 through L3-4 and scatte red bone islands as detailed above. Some calcification of the ligamentum flavum at L2-3. 2. No acute fracture or listhesis. Spinal canal and neural foramina appear to be adequate throughout Shashi Mccurdy MD on June 30, 2017 at 16:15 Board Certified Radiologist. This report was verified electronically.
[2017-06-30] MEDS ORDERED: ACETAMINOPHEN/HYDROcodone 325 MG/5 MG TAB PO ONE (17:45)
--- NOTE | 2017-06-30 18:52 | RADRPT ---
EXAM DATE/TIME: 06/30/2017 18:09 [facility] COMPARISON: No previous studies available for comparison. INDICATIONS : Left shoulder pain after falling into a bucket MEDICAL HISTORY : Hypertension. SURGICAL HISTORY : Tubal ligation. ENCOUNTER: Initial ACUITY: 1 day PAIN SCORE: 9/10 LOCATION: Left upper extremity FINDINGS: No fracture or subluxation of the left shoulder. 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 Radiographic appearance of the soft tissues within normal limits. CONCLUSION: Intact left shoulder. Degenerative changes of the acromioclavicular joint. Bony Swain MD on June 30, 2017 at 18:49 Board Certified Radiologist. This report was verified electronically.
--- NOTE | 2017-06-30 18:53 | RADRPT ---
EXAM DATE/TIME: 06/30/2017 18:12 [facility] COMPARISON: No previous studies available for comparison. INDICATIONS : Patient complains of left arm pain after falling in a bucket MEDICAL HISTORY : Hypertension. SURGICAL HISTORY : Tubal ligation. ENCOUNTER: Initial ACUITY: 1 day PAIN SCORE: 9/10 LOCATION: Left upper extremity FINDINGS: Multiple view examination of the left elbow demonstrates no soft tissue swelling, joint effusion, or fracture. The osseous structures are in normal alignment. Bony mineralization is normal. CONCLUSION: Intact left elbow. Bony Swain MD on June 30, 2017 at 18:50 Board Certified Radiologist. This report was verified electronically.
--- NOTE | 2017-06-30 18:57 | RADRPT ---
EXAM DATE/TIME: 06/30/2017 18:19 [facility] COMPARISON: No previous studies available for comparison. INDICATIONS : Patient complains of left sided body pain after falling into a bucket. MEDICAL HISTORY : Hypertension. SURGICAL HISTORY : Tubal ligation. ENCOUNTER: Initial ACUITY: 1 day PAIN SCORE: 9/10 LOCATION: Left chest FINDINGS: A single view of the chest demonstrates the lungs to be symmetrically aerated without evidence of mas s, infiltrate or effusion. The cardiomediastinal contours are unremarkable. Osseous structures are intact. CONCLUSION: No acute cardiopulmonary disease demonstrated. Bony Swain MD on June 30, 2017 at 18:54 Board Certified Radiologist. This report was verified electronically.
--- NOTE | 2017-06-30 19:04 | PD ---
Physical Exam Time Seen by Provider: 19:00 Narrative Received report from Dr. Trejo at change of shift. Left elbow, left shoulder, chest x-ray pending. Data Data Last Documented VS Vital Signs Date Time Temp Pulse Resp B/P (MAP) Pulse Ox O2 Delivery O2 Flow Rate FiO2 06/30/17 15:05 Room Air 06/30/17 14:18 98.6 100 18 153/92 (112) [address] Cerv Spine W/O Contrast (06/30/17 ) Ct Lumb Spine W/O Contrast (06/30/17 ) Ct Brain W/O Iv Contrast(Rout) (06/30/17 ) Elbow, Complete (4 Vws) (06/30/17 ) Orphenadrine Inj (Norflex Inj) (06/30/17 15:15) Shoulder, Limited(2vws) (06/30/17 17:35) Acetamin-Hydrocod 325-5 Mg ([place] 5-325 (06/30/17 17:45) Chest, Single Ap (06/30/17 ) Ed Discharge Order (06/30/17 19:04) Sling Cradle Arm (06/30/17 ) MDM Supervised Visit with BEN: No Narrative Course Received report from Dr. Trejo at change of shift. Left elbow, left shoulder, chest x-ray pending. 1900: Left shoulder and left elbow x-ray concluded: Shoulder X-Ray 06/30/17 1735 Signed Impressions: Service Date/Time: Friday, June 30, 2017 18:09 - CONCLUSION: Intact left shoulder. Degenerative changes of the acromioclavicular joint. Bony Swain MD Elbow X-Ray 06/30/17 0000 Signed Impressions: Service Date/Time: Friday, June 30, 2017 18:12 - CONCLUSION: Intact left elbow. Bony Swain MD Chest x-ray with no acute findings. Discussed x-ray findings with the patient. Patient is in the room at this time getting herself dressed and moving her left arm completely. Arm sling ordered for support. Insect patient to follow- up with orthopedics as needed. Instructed patient to follow up with primary care provider. Patient verbalizes understanding and agreement with treatment plan. Patient is medically cleared and stable for discharge. Discussed reasons to return to the emergency department. Patient agrees with treatment plan. The patients vital signs are stable and the patient is stable for outpatient follow-up and treatment. Patient discharged home, stable and in no acute distress. Diagnosis Primary Impression: Fall Qualified Codes: W19.XXXA - Unspecified fall, initial encounter Additional Impressions: Injury of left elbow Qualified Codes: S59.902A - Unspecified injury of left elbow, initial encounter Injury of left shoulder Qualified Codes: S49.92XA - Unspecified injury of left shoulder and upper arm , initial encounter Closed head injury Qualified Codes: S09.90XA - Unspecified injury of head, initial encounter Referrals: [facility] Primary Care Physician Patient Instructions: General Instructions, Fall Prevention (DC) Additional Instruction: Ibuprofen or Tylenol as directed and as needed for pain and inflammation Rest and immobilize the affected extremity Arm sling as needed for support Apply ice to affected area Avoid elbow pressure by not leaning or placing your weight on your elbow to rise from a lying or sitting position Follow-up with primary care provider Follow-up with orthopedic as needed Return to the emergency department immediately with worsening of symptoms Med/Other Pt SpecificInfo: Prescription(s) given Scripts Ibuprofen (Ibuprofen) 800 Mg Tab 800 MG PO Q6HR Y for PAIN, #30 TAB 0 Refills Prov: Cheyenne Tijerina 06/30/17 Methocarbamol (Robaxin) 500 Mg Tab 500 MG PO QID Y for MUSCLE SPASM, #30 TAB 0 Refills Prov: Cheyenne Tijerina 06/30/17 Disposition: 01 DISCHARGE HOME Condition: Stable Cheyenne Tijerina Jun 30, 2017 19:04
[2017-06-30] MEDS ORDERED: ROBA500T PO (19:08)
[2017-06-30] MEDS ORDERED: IBUP1TAB7 PO (19:08)
== END 2017-06-30 19:34 | disposition home or self-care (01) ==
LOC: NEPD 13:39
DX: S59.902A Unspecified injury of left elbow, initial encounter (principal); S49.92XA Unspecified injury of left shoulder and upper arm, initial encounter; S09.90XA Unspecified injury of head, initial encounter; W06.XXXA Fall from bed, initial encounter
CPT/HCPCS: 70450; 71045; 72125; 72131; 73030; 73080; 96372; 99283; J2360

== ENCOUNTER 2017-08-21 03:03 | Emergency (ER) | payer MEDICAID ==
[~2017-08-21] VITALS: Ht 167.6 cm; Wt 90.0 kg
[~2017-08-21 03:03] MED LIST changes: +ROBA500T PO
[2017-08-21 03:10] VITALS: BP 193/85; PULSE 105; RESP 20; TEMP 100.2; TEMP 99.1; O2SAT 98
[2017-08-21] MEDS ORDERED: GABA800T PO (03:14)
[2017-08-21] MEDS ORDERED: NITROGLYCERIN 2% OINT 1 GM PACKET TOPICAL ONE (04:30)
[2017-08-21] MEDS ORDERED: FUROSEMIDE 40 MG/4 ML VIAL IV PUSH ONE (04:30)
[2017-08-21] MEDS ORDERED: ONDANSETRON ODT 4 MG TAB PO ONE (04:45)
[2017-08-21] MEDS ORDERED: SODIUM CHLORIDE 0.9% FLUSH 10 ML FLUSH IV FLUSH PRN (04:45)
[2017-08-21] MEDS ORDERED: LIDOCAINE VISCOUS 2% SOLN 15 ML UDC PO ONE (04:45)
[2017-08-21] MEDS ORDERED: FAMOTIDINE 20 MG/2 ML VIAL IV PUSH ONE (04:45)
[2017-08-21] MEDS ORDERED: ALUMINUM/MAGNESIUM/SIMETH 30 ML CUP PO ONE (04:45)
[2017-08-21] MEDS ORDERED: ONDANSETRON HCL 4 MG/2 ML VIAL ONE (04:45)
[2017-08-21 04:58] VITALS: RESP 22; O2SAT 98
[2017-08-21 05:16] LABS: AUTOMATED NEUTROPHIL # 16.2 TH/MM3 (1.8-7.7); BASOPHIL % 0.2 % (0.0-2.0); HEMATOCRIT 39.4 % (35.0-46.0); HEMOGLOBIN 13.2 GM/DL (11.6-15.3); LYMPH % 8.5 % (9.0-44.0); LYMPHOCYTE # 1.6 TH/MM3 (1.0-4.8); MEAN CELL VOLUME 83.2 FL (80.0-100.0); MEAN CORPUSCULAR HGB CONC 33.6 % (32.0-36.0); MEAN PLATELET VOLUME 9.1 FL (7.0-11.0); MONO % 6.7 % (0.0-8.0); MONOCYTE # 1.3 TH/MM3 (0-0.9); NEUT % 84.6 % (16.0-70.0); PLATELET COUNT 170 TH/MM3 (150-450); RED BLOOD COUNT 4.73 MIL/MM3 (4.00-5.30); RED CELL DISTRIBUTION WIDTH 14.9 % (11.6-17.2); WHITE BLOOD COUNT 19.2 TH/MM3 (4.0-11.0)
[2017-08-21 05:23] LABS: ALT (GPT) 81 U/L (10-53)
[2017-08-21 05:25] LABS: ALKALINE PHOSPHATASE 149 U/L (45-117); TOTAL BILIRUBIN ADULT 1.2 MG/DL (0.2-1.0); TOTAL PROTEIN 8.1 GM/DL (6.4-8.2)
[2017-08-21 05:27] LABS: ALBUMIN 3.7 GM/DL (3.4-5.0); AST (GOT) 51 U/L (15-37); BICARBONATE 19.4 MEQ/L (21.0-32.0); BLOOD UREA NITROGEN 11 MG/DL (7-18); CHLORIDE 106 MEQ/L (98-107); CREATININE 0.87 MG/DL (0.50-1.00); GLOMERULAR FILTRATION RATE 69 ML/MIN (>89); GLUCOSE,RANDOM 186 MG/DL (74-106); SODIUM (NA) 140 MEQ/L (136-145)
[2017-08-21] MEDS ORDERED: traMADol HCL 50 MG TAB PO ONE (05:30)
[2017-08-21] MEDS ORDERED: DIAZEPAM 5 MG TAB PO ONE (05:30)
[2017-08-21] MEDS ORDERED: ceFAZolin 2 GM PREMIX 50 ML IV ONE (06:00)
[2017-08-21] MEDS ORDERED: SODIUM CHLOR 0.9% 1000 ML INJ 1,000 ML IV ONE (06:00)
--- NOTE | 2017-08-21 06:06 | PD ---
HPI . N/V/ and left leg pain Chief Complaint: Abdominal Pain Time Seen by Provider: 03:17 Travel History International Travel<30 days: No Contact w/Intl Traveler<30days: No Traveled to known affect area: No History of Present Illness HPI Patient is a 52-year-old female who has been in our ER multiple times with abdominal pain she has multiple complaints tonight including nausea vomiting left lower leg pain skin irritations back pain headache and she is retching without vomiting over and over again I review her past visits for abdomen pain and her complaint is left leg pain as well as nausea and vomiting PFSH Past Medical History Cancer: No Diabetes: No Diminished Hearing: No Endocrine: No Fibromyalgia: Yes Gastrointestinal Disorders: No Genitourinary: No Hepatitis: No Hiatal Hernia: No Hypertension: Yes Immune Disorder: Yes (fibromyalgia) Musculoskeletal: Yes (l hip pain lower back back pain) Neurologic: Yes (fibromyalgia) Psychiatric: No Reproductive: No Respiratory: No Thyroid Disease: Yes Tetanus Vaccination: > 5 Years Influenza Vaccination: No ?: Not : 4 Para: 4 Ovarian Cysts: Yes Tubal Ligation: Yes Past Surgical History Abdominal Surgery: Yes (laparoscopy) AICD: No Cardiac Surgery: No Cholecystectomy: Yes Ear Surgery: No Endocrine Surgery: No Eye Surgery: No Joint Replacement: Yes (hip right side) Oral Surgery: No Pacemaker: No Thoracic Surgery: No Other Surgery: Yes Social History Alcohol Use: No Tobacco Use: No 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) Allergies-Medications (Allergen,Severity, Reaction): Coded Allergies: doxycycline (Unverified Allergy, Severe, SWELLING, 08/21/17) erythromycin base (Unverified Allergy, Severe, SWELLING, 08/21/17) ketorolac (Unverified Allergy, Severe, SWELLING, 08/21/17) perphenazine (Unverified Allergy, Severe, SWELLING, 08/21/17) sulfamethoxazole (Unverified Allergy, Severe, SWELLING, 08/21/17) trimethoprim (Unverified Allergy, Severe, SWELLING, 08/21/17) Reported Meds & Prescriptions Reported Meds & Active Scripts Active Valium (Diazepam) 2 Mg Tab 2 Mg PO TID PRN Ibuprofen 600 Mg Tab 600 Mg PO Q6H PRN Zofran Odt (Ondansetron Odt) 4 Mg Tab 4 Mg SL Q6HR PRN Amoxicillin-Clavulanate 875-125 mg Tab 875 Mg PO BID not for use in CrCl <30 mL/minute Ibuprofen 800 Mg Tab 800 Mg PO Q6HR PRN Reported Gabapentin 800 Mg Tab 800 Mg PO TID Klonopin (Clonazepam) 2 Mg Tab 2 Mg PO HS Hydroxyzine HCl 25 Mg Tab 25 Mg PO TID Remeron (Mirtazapine) 15 Mg Tab 15 Mg PO HS Catapres (Clonidine) 0.2 Mg Tab 0.2 Mg PO BID Ondansetron (Ondansetron HCl) 8 Mg Tab 6 Mg PO Q6HR Lamotrigine 100 Mg Tab 100 Mg PO HS Review of Systems Except as stated in HPI: all other systems reviewed are Neg Physical Exam Narrative GENERAL: wretching no vomitus SKIN: Warm and dry. picked skin appearance hands legs HEAD: Atraumatic. Normocephalic. EYES: Pupils equal and round. No scleral icterus. No injection or drainage. ENT: No nasal bleeding or discharge. Mucous membranes pink and moist. NECK: Trachea midline. No JVD. CARDIOVASCULAR: Regular rate and rhythm. RESPIRATORY: No accessory muscle use. Clear to auscultation. Breath sounds equal bilaterally. GASTROINTESTINAL: Abdomen soft, non-tender, nondistended. Hepatic and splenic margins not palpable. MUSCULOSKELETAL: Extremities without clubbing, cyanosis, or edema. No obvious deformities. NEUROLOGICAL: Awake and alert. No obvious cranial nerve deficits. Motor grossly within normal limits. Five out of 5 muscle strength in the arms and legs. Normal speech. PSYCHIATRIC: Appropriate mood and affect; insight and judgment normal. Data Data Last Documented VS Vital Signs Date Time Temp Pulse Resp B/P (MAP) Pulse Ox O2 Delivery O2 Flow Rate FiO2 08/21/17 04:58 22 98 Room Air 08/21/17 03:10 100.2 105 193/85 (121) Orders Orders Furosemide Inj (Lasix Inj) (08/21/17 04:30) Nitroglycerin 2% Oint (Nitroglycerin 2% (08/21/17 04:30) Complete Blood Count With Diff (08/21/17 04:36) Comprehensive Metabolic Panel (08/21/17 04:36) Lipase (08/21/17 04:36) Iv Access Insert/Monitor (08/21/17 04:36) Ecg Monitoring (08/21/17 04:36) Oximetry (08/21/17 04:36) Sodium Chloride 0.9% Flush (Ns Flush) (08/21/17 04:45) Famotidine Inj (Pepcid Inj) (08/21/17 04:45) Ondansetron Inj (Zofran Inj) (08/21/17 04:45) Al-Mag Hy-Si 40-40-4 Mg/Ml Liq (Mag-Al P (08/21/17 04:45) Lidocaine 2% Viscous (Xylocaine 2% Visco (08/21/17 04:45) Ondansetron Odt (Zofran Odt) (08/21/17 04:45) Tramadol (Ultram) (08/21/17 05:30) Diazepam (Valium) (08/21/17 05:30) Sodium Chlor 0.9% 1000 Ml Inj (Ns 1000 M (08/21/17 06:00) Cefazolin 2 Gm Premix (Ancef 2 Gm Premix (08/21/17 06:00) Labs Laboratory Tests Test 08/21/17 04:51 White Blood Count 19.2 TH/MM3 Red Blood Count 4.73 MIL/MM3 Hemoglobin 13.2 GM/DL Hematocrit 39.4 % Mean Corpuscular Volume 83.2 FL Mean Corpuscular Hemoglobin 28.0 PG Mean Corpuscular Hemoglobin Concent 33.6 % Red Cell Distribution Width 14.9 % Platelet Count 170 TH/MM3 Mean Platelet Volume 9.1 FL Neutrophils (%) (Auto) 84.6 % Lymphocytes (%) (Auto) 8.5 % Monocytes (%) (Auto) 6.7 % Eosinophils (%) (Auto) 0.0 % Basophils (%) (Auto) 0.2 % Neutrophils # (Auto) 16.2 TH/MM3 Lymphocytes # (Auto) 1.6 TH/MM3 Monocytes # (Auto) 1.3 TH/MM3 Eosinophils # (Auto) 0.0 TH/MM3 Basophils # (Auto) 0.0 TH/MM3 CBC Comment DIFF FINAL Differential Comment Blood Urea Nitrogen 11 MG/DL Creatinine 0.87 MG/DL Random Glucose 186 MG/DL Total Protein 8.1 GM/DL Albumin 3.7 GM/DL Calcium Level 9.0 MG/DL Alkaline Phosphatase 149 U/L Aspartate Amino Transf (AST/SGOT) 51 U/L Alanine Aminotransferase (ALT/SGPT) 81 U/L Total Bilirubin 1.2 MG/DL Sodium Level 140 MEQ/L Potassium Level 3.1 MEQ/L Chloride Level 106 MEQ/L Carbon Dioxide Level 19.4 MEQ/L Anion Gap 15 MEQ/L Estimat Glomerular Filtration Rate 69 ML/MIN Lipase 105 U/L MDM Medical Decision Making Medical Screen Exam Complete: Yes Emergency Medical Condition: Yes Medical Record Reviewed: Yes Diagnosis Primary Impression: Vomiting Qualified Codes: R11.10 - Vomiting, unspecified Additional Impression: Skin eruption Scripts Diazepam (Valium) 2 Mg Tab 2 MG PO TID Y for MUSCLE SPASM, #12 TAB 0 Refills Prov: Quincy Jeffrey MD 08/21/17 Ibuprofen (Ibuprofen) 600 Mg Tab 600 MG PO Q6H Y for Pain/Inflammation, #20 TAB 0 Refills Prov: Quincy Jeffrey MD 08/21/17 Ondansetron Odt (Zofran Odt) 4 Mg Tab 4 MG SL Q6HR Y for Nausea/Vomiting, #20 TAB 0 Refills Prov: Quincy Jeffrey MD 08/21/17 Amoxicillin-Clavulanate (Amoxicillin-Clavulanate) 875-125 mg Tab 875 MG PO BID for Infection, #20 TAB 0 Refills not for use in CrCl <30 mL/minute Prov: Quincy Jeffrey MD 08/21/17 Disposition: 01 DISCHARGE HOME Condition: Good Quincy Jeffrey MD Aug 21, 2017 06:06
[2017-08-21] MEDS ORDERED: ZOFR4TAB3 SL (06:14)
[2017-08-21] MEDS ORDERED: AMOX875T2 PO (06:14)
[2017-08-21] MEDS ORDERED: DIAZ2 PO (06:15)
[2017-08-21] MEDS ORDERED: IBUP-232 PO (06:15)
== END 2017-08-21 07:16 | disposition home or self-care (01) ==
LOC: NEPE 03:03
DX: R11.10 Vomiting, unspecified (principal); M79.605 Pain in left leg; R10.9 Unspecified abdominal pain
CPT/HCPCS: 80053; 83690; 85025; 96361; 96374; 96375; 99284; J0690; J7030